=== PATIENT | female | born 1935 | race Caucasian/White ===

== ENCOUNTER 2022-08-11 00:53 | Outpatient (CLI) | payer MEDICARE, SELFPAY ==
--- NOTE | 2022-08-11 08:45 | DI.US_ITS ---
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 TECHNIQUE: Ultrasound thyroid performed using standard protocol. COMPARISON: US US THYROID from 12/21/2021 FINDINGS: Both thyroid lobes exhibit upper normal size. There are multiple small nodules in the left lobe. Al so multiple nodules in the right lobe. The dominant nodule in the right lobe is graded by TiRads RIGHT THYROID LOBE: Measures 2.4 cm AP x 2.1 cm wide x 5.13 cm craniocaudal Dominant nodule: Size: Measures 2.3 by 2.1 x 2 cm Composition: Solid-2 points Echogenicity: Hypoechoic-2 points Shape: Slightly taller than wider in the transverse plane-3 points Margin: Smooth- 0 points Echogenic Foci: Appears to contain punctate echogenic foci-3 points Total Points for this nodule: 10 ACR Ti-Rads Category: TR5 This TR5 nodule requires ultrasound-guided FNA. Nodule #2 more medially located in the right lobe Size: Measures 1.2 x 0.8 x 1.1 cm cm Composition: Solid-2 points Echogenicity: Isoechoic to surrounding gland-1 point Shape: Wider than taller- 0 points Margin: Smooth-0 points Echogenic Foci: Appears to contain punctate echogenic foci-3 points Total points for this nodule: 6 ACR Ti-Rads Category: TR4 This TR4 nodule can be followed as it measures less than 1.5 cm Other smaller nodules in the right lobe are not graded ISTHMUS: Normal thickness. There are no nodules significant in the isthmus. LEFT THYROID LOBE: Measures 1.7 cm AP x 1.8 wide x 5.0 cm craniocaudal There are multiple small nodules in the left lobe which can be followed and are not graded at this ti me. All are less than 1.5 cm LYMPH NODES: There is no significant adenopathy on either side of the neck. IMPRESSION: 1. Multiple bilateral nodules. Most significant nodule is the largest-dominant solid nodule in the r ight lobe which measures 2.3 x 2.1 x 2.1 cm and is a TR5 nodule which requires ultrasound-guided FNA as it measures greater than 1.5 cm 2. Other bilateral nodules can be followed conservatively 3. There is no significant lymphadenopathy. DATA REPOSITORY:
== END 2022-08-11 01:13 ==
PROVIDERS: PCP Family Medicine; Visit Provider Otolaryngology
DX: E04.2 Nontoxic multinodular goiter (principal)
CPT/HCPCS: 76536

== ENCOUNTER 2022-09-27 02:14 | Outpatient (CLI) | payer MEDICARE, SELFPAY ==
--- NOTE | 2022-09-27 08:30 | DI.US_ITS ---
Exam(s) US NEEDLE LOCAL OTHER WO RAD EXAM: US NEEDLE LOCAL OTHER WO RAD CLINICAL HISTORY: right thyroid TR5 nodule, E04.1. COMPARISON: US US THYROID from 08/11/2022 TECHNIQUE: Ultrasound was provided for guidance with performing thyroid FNA. FINDINGS: Previously noted nodules were targeted. Please see procedure note for details. IMPRESSION: Successful Ultrasound-guided thyroid FNA. DATA REPOSITORY:
--- NOTE | 2022-09-27 12:50 | PAPNONF_PTH ---
PATIENT: Dacia Ramon LOC: [facility]UM U#:[id number] AGE/SX: 86/F ROOM: RE09/27/[address]: Jenna Fields : 1935 BED: DIS: 09/27/2022 SPEC #: [id number] RECD: 09/27/22 13:17 STATUS: CARLOS A RESusan #: [id number] RUSTY: 09/27/22 12:[address]: Jenna Fields DEPT: [facility] Cytology RECD BY: Kiley Mcclendon ENTERED: 09/27/22 13:18 SP TYPE: KAYE HARDING DR: Andreina Hassan Tissues: 1 - BODY FLUID CYTO-FINE NEEDLE [facility]IRATE[facility] Procedures: BODY FLUID CYTO-FINE NEEDLE ASPIRATE[facility] Comments: [id number] (PATH FNA CONSULT) (REFRIGERATED)
--- NOTE | 2022-09-27 13:07 | W.PROCNOTE ---
Date of service: 09/27/22 Time of Service: 13:07 Procedure Note Date of procedure: 09/27/22 Procedure: Ultrasound-guided FNA, right thyroid nodule, TR five 2.3 cm nodule, Surgeon/Proceduralist/Physician: Octavio Caro Procedure Diagnosis: Right-sided TR five 2.3 cm nodule meeting criteria for biopsy Procedure Indications: The patient has a right-sided TR 5 thyroid nodule measuring 2.5 cm in diameter with a slight increase in size between her previous ultrasound and this 1. Options were explained to the patient regarding further management. She elected undergo the above procedure. Verbal consent was obtained. The below was then performed. Risks including bleeding, infection, failure to obtain an answer, and need for further treatment or surgery were discussed at length prior to the procedure. Procedure Description: The patient was positioned in supine position with her neck extended. Ultrasound was used to localize the thyroid nodule, and then the patient was prepped and draped in appropriate fashion. 1% lidocaine with 1/100,000 epinephrine was injected into the skin and subcutaneous tissues overlying the nodule, and then a 25-gauge needle passed into the thyroid nodule. Multiple passes were made. A total of 4 separate passes were made into the thyroid nodule, yielding a total of 4 clusters of cells and significant colloid with the air-dried prep performed by pathology. With each pass, a significant portion of the debris was placed into CytoLyt for further evaluation. After 4 passes, with the above results, options were explained to the patient. After discussion, we elected to do no further passes, save for 2 additional passes for potential Afirma. My suspicion is that we probably have enough cellularity in the CytoLyt, although I cannot be sure. The patient is aware of this. Sterile dressing was applied after ensuring adequate hemostasis, and the patient was allowed to sit and then stand. Her vital signs remained stable. She was able to ambulate afterwards without difficulty. She will remove the bandage in an hour and not replace it. She will call with any signs of infection. She will use ibuprofen or Tylenol or aspirin for discomfort. She had no further questions. She is comfortable with the plan. She will call me if she does not hear from me within 1 week with regard to pathology.
== END 2022-09-27 02:34 ==
LOC: DI 02:16
PROVIDERS: PCP Family Medicine; Visit Provider Registered Nurse Maternal Newborn
DX: E04.1 Nontoxic single thyroid nodule (principal)
CPT/HCPCS: 76942; 88104

== ENCOUNTER 2023-11-07 01:14 | Outpatient (CLI) | payer MEDICARE, SELFPAY ==
--- NOTE | 2023-11-07 07:30 | DI.US_ITS ---
Exam(s) US THYROID EXAM: US THYROID CLINICAL HISTORY: Assess for change,MULTINODULAR GOITER,E04.2. TECHNIQUE: Ultrasound thyroid performed using standard protocol. COMPARISON: US US THYROID from 08/11/2022 US US NEEDLE LOCAL OTHER WO RAD from 09/27/2022 FINDINGS: ISTHMUS: 4 mm RIGHT LOBE: Size: 5.2 x 2.2 x 2.5 cm Echogenicity: Heterogeneous Vascularity: Normal. Nodules: Multiple nodules. Nodule at the upper pole measures 1.3 x 1.2 x 1.1 cm, solid, isoechoic an d smoothly marginated. Slightly wider than tall. No echogenic foci. TR 3. Nodule in lower pole me asures 2.4 x 2.1 x 1.9 cm. Solid, hypoechoic, slightly taller than wide, smoothly marginated with ec hogenic foci. TR 5. This lesion was previously biopsied. No significant change in size. LEFT LOBE: Size: 4.4 x 1.9 x 1.7 cm Echogenicity: Heterogeneous Vascularity: Normal. Nodules: Multiple small nodules. The largest is at the upper pole measuring 1.5 x 0.8 x 1.3 cm. Julissa id, hypoechoic, wider than tall, smoothly marginated, without echogenic foci, TR 3. OTHER FINDINGS: None. IMPRESSION: Stable multiple bilateral thyroid nodules. DATA REPOSITORY:
== END 2023-11-07 01:34 ==
LOC: DI 01:14
PROVIDERS: PCP Family Medicine; Visit Provider Otolaryngology
DX: E04.2 Nontoxic multinodular goiter (principal)
CPT/HCPCS: 76536

== ENCOUNTER 2024-09-17 02:52 | Outpatient (RCR) | payer MEDICARE, SELFPAY ==
[2024-09-17 08:47] LABS: Abs Immature Grans 0.03 10^3/uL (0.0-0.06); HCT 35.5 % (36.0-46.0); HGB 11.3 g/dL (11.2-15.7); Immature Grans % 0.3 %; MCH 27.3 pg (27.0-33.0); MCHC 31.8 % (32.0-36.0); MCV 86 fL (80-95); MPV 9.3 fL (8.0-11.0); Platelet Count 307 10^3/uL (130-400); RBC 4.14 10^6/uL (3.93-5.22); RDW 17.2 % (11.7-14.6); RDW-SD 53.7 fL; WBC 10.97 10^3/uL (4.4-10.8)
[2024-09-17] MEDS: Normal Saline Flush 10 ML SYR IVP (08:50)
[2024-09-17 09:17] LABS: ALT 19 U/L (14-59); AST 13 U/L (15-37); Albumin 3.1 g/dL (3.4-5.0); Alkaline Phosphatase 84 U/L (46-116); Anion Gap 7.6 mmol/L (3-11); BUN 15 mg/dL (7-18); Bilirubin, Total 0.3 mg/dL (0.2-1.0); CO2 28.4 mmol/L (21.0-32.0); Calcium 9.4 mg/dL (8.5-10.1); Chloride 106 mmol/L (98-107); Estimated GFR 90.16 (mL/min/1.73m2); Glucose 121 mg/dL (74-106); Magnesium 1.8 mg/dL (1.8-2.4); Potassium 3.8 mmol/L (3.5-5.1); Sodium 142 mmol/L (136-145); TSH 2.43 uIU/mL (0.36-3.74); Total Protein 6.3 g/dL (6.4-8.2)
== END 2024-09-26 23:59 | disposition home or self-care (01) ==
LOC: INF 02:52
PROVIDERS: PCP Family Medicine; Visit Provider Internal Medicine Medical Oncology
DX: C34.31 Malignant neoplasm of lower lobe, right bronchus or lung (principal); Z79.899 Other long term (current) drug therapy; Z45.2 Encounter for adjustment and management of vascular access device
CPT/HCPCS: 36591; 80053; 83735; 84439; 84443; 85025

== ENCOUNTER 2024-10-21 03:24 | Outpatient (CLI) | payer MEDICARE, SELFPAY ==
--- NOTE | 2024-10-21 | DI.CT_ITS ---
Exam(s) CT CHEST/ABD/PEL W EXAM: CT CHEST/ABD/PEL W CLINICAL HISTORY: Metastatic non-small cell lung cancer, unspecified laterality, C34.90; TECHNIQUE: Imaging Protocol: Axial computed tomography images with coronal and sagittal reformatted images were created and reviewed. Lung Computer Aided Detection (CAD) was utilized. CONTRAST MATERIAL: Intravenous: Omnipaque 350 contrast volume:100 mL Oral: Yes COMPARISON: No exams were available for comparison FINDINGS: CHEST: Tracheobronchial tree: No evidence of bronchiectasis. Pulmonary parenchyma: There is a right perihilar mass measuring 5.9 transverse by 4.8 AP by 5.7 craniocaudad cm. There is narrowing of the airway to the superior segment of the right lower lobe. There are few pulmonary nodules present. The largest is in the right middle lobe and measures 1.1 cm (series 11, image 71). There is a small infiltrate seen in the right upper lobe. Visualized thyroid gland: There is a multinodular thyroid gland. The largest nodule is seen in the right lobe and measures 2.1 x 1.8 cm. Nonemergent thyroid ultrasound should be considered for further evaluation. Mediastinum and Emma: Mediastinal and right hilar adenopathy is present. The largest lymph node is seen in the right hilum measures 1.8 cm. The esophagus is unremarkable. Pleura: There is no pneumothorax. There is no left pleural effusion. There is a small pleural effusion or pleural thickening on the right. Heart: The heart is not dilated. No coronary artery calcifications are seen. No pericardial effusion. Pulmonary arteries: No pulmonary emboli are identified. There is compression/obstruction of pulmonary arteries seen to the right upper and right lower lobe secondary to the pulmonary neoplasm. Aorta: Thoracic aorta non-dilated. There is no evidence of dissection. Atherosclerotic calcification is present. Lymph nodes: There is no axillary adenopathy. Tubes, Catheters, and Lines: There is a right port in place. Soft tissues: Incidental note is made of a lipoma in the right axilla. There is a nonspecific 3 mm soft tissue nodule along the right lateral chest wall. Bones:Within normal limits for the patient's age. No suspicious lytic or sclerotic lesions are present. ABDOMEN: Liver: Normal density. There is a 1.3 cm simple cyst in the right lobe of the liver. There are no suspicious hepatic masses present. Portal, Superior Mesenteric, and Splenic Veins: Unremarkable. Gallbladder and Biliary Tract: No radiodense calculus or dilation. Pancreas: Normal density, no abnormal calcifications or inflammatory process. Spleen: Normal. Adrenals: No masses seen. Kidneys: Normal size, contour and axis. No radiodense stones or obstructive uropathy. There are no suspicious renal masses. Abdominal Aorta: Abdominal portion non-dilated. Atherosclerotic calcification is present. Bowel: No obstruction or bowel wall thickening. Appendix is unremarkable. There are a few scattered diverticula but no evidence of acute diverticulitis. There is no evidence of pneumatosis. Peritoneal Cavity: No ascites, collection or mesenteric inflammatory response. No free air. Lymph Nodes: Mildly enlarged lymph nodes are seen in the mesentery. Bones: Within normal limits for the patient's age. No suspicious lytic or sclerotic lesions are present. Soft Tissues: Unremarkable. PELVIS: Bladder: Symmetric distention, no gross wall thickening. Reproductive Organs: Unremarkable as visualized. Lymph Nodes: Within normal limits. Bones: Within normal limits. IMPRESSION: 1. No acute abdominal or pelvic process. 2. Nonspecific mildly enlarged lymph nodes seen in the mesentery. 3. 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 There is narrowing of associated vessel and airways. 4. Thoracic adenopathy and pulmonary metastases.. 5. Small right pleural effusion and/or pleural thickening. RADIATION DOSE DELIVERED: 511.16mGy.cm Total DLP DATA REPOSITORY: All CT scans at this facility are submitted to the National Radiology Data Registry (NRDR) Dose Index Registry (DIR) with the [employer] (ACR). RADIATION OPTIMIZATION: All CT scans at this facility use at least one of these dose optimization techniques: automated exposure control; mA and/or kV adjustment per patient size (includes targeted exams where dose is matched to clinical indication); or iterative reconstruction.
[2024-10-21] MEDS: Barium Sulfate 2% W/V-Berry Smoothie 450 ML BTL PO ×2 (07:42→07:43)
[2024-10-21] MEDS: Normal Saline - Diluent 50 ML VIAL IJ (09:47)
[2024-10-21] MEDS: Omnipaque 350 MG/ML 500 ML BTL-Imaging package IJ (09:47)
[2024-10-21] MEDS: Normal Saline Flush 10 ML SYR IVP (09:48)
== END 2024-10-21 03:44 ==
LOC: DI 03:24
PROVIDERS: PCP Family Medicine; Visit Provider Nurse Practitioner Family
DX: C34.91 Malignant neoplasm of unspecified part of right bronchus or lung (principal)
CPT/HCPCS: 74177; 96523; 71260

== ENCOUNTER 2024-10-21 03:32 | Outpatient (RCR) | payer MEDICARE, SELFPAY ==
[2024-10-07 09:11] LABS: Abs Immature Grans 0.04 10^3/uL (0.0-0.06); HCT 31.2 % (36.0-46.0); HGB 9.9 g/dL (11.2-15.7); Immature Grans % 0.5 %; MCH 27.0 pg (27.0-33.0); MCHC 31.7 % (32.0-36.0); MCV 85 fL (80-95); MPV 9.0 fL (8.0-11.0); Platelet Count 346 10^3/uL (130-400); RBC 3.67 10^6/uL (3.93-5.22); RDW 18.1 % (11.7-14.6); RDW-SD 55.3 fL; WBC 8.04 10^3/uL (4.4-10.8)
[2024-10-07] MEDS: Normal Saline Flush 10 ML SYR IVP (09:34)
[2024-10-07 09:38] LABS: ALT 22 U/L (14-59); AST 15 U/L (15-37); Albumin 2.7 g/dL (3.4-5.0); Alkaline Phosphatase 102 U/L (46-116); Anion Gap 7.2 mmol/L (3-11); BUN 15 mg/dL (7-18); Bilirubin, Total 0.3 mg/dL (0.2-1.0); CO2 28.8 mmol/L (21.0-32.0); Calcium 9.2 mg/dL (8.5-10.1); Chloride 103 mmol/L (98-107); Estimated GFR 70.39 (mL/min/1.73m2); Glucose 113 mg/dL (74-106); Magnesium 1.8 mg/dL (1.8-2.4); Potassium 4.0 mmol/L (3.5-5.1); Sodium 139 mmol/L (136-145); TSH 0.38 uIU/mL (0.36-3.74); Total Protein 6.1 g/dL (6.4-8.2)
[2024-10-21] MEDS: Normal Saline Flush 10 ML SYR IVP (07:43)
== END 2024-10-27 23:59 | disposition home or self-care (01) ==
LOC: INF 03:32
PROVIDERS: PCP Family Medicine; Visit Provider Internal Medicine Medical Oncology
DX: C34.31 Malignant neoplasm of lower lobe, right bronchus or lung (principal); Z79.899 Other long term (current) drug therapy; Z45.2 Encounter for adjustment and management of vascular access device
CPT/HCPCS: 36591; 80053; 96523; 83735; 84439; 84443; 85025

== ENCOUNTER 2024-11-05 11:34 | Outpatient (CLI) | payer MEDICARE, SELFPAY ==
--- NOTE | 2024-11-05 06:45 | DI.US_ITS ---
Exam(s) US THYROID EXAM: US THYROID CLINICAL HISTORY: Assess for change,multinodular goiter,e04.2. TECHNIQUE: Ultrasound thyroid performed using standard protocol. COMPARISON: US US THYROID from 12/21/2021 US US NEEDLE LOCAL OTHER WO RAD from 09/27/2022 US US THYROID from 11/07/[address] CHEST/ABD/PEL W from 10/21/2024 FINDINGS: There are again noted multiple bilateral thyroid nodules with a dominant nodule again noted to be in the right lobe and this apparently underwent prior ultrasound-guided FNA on 09/27/2022. With respect to the multiple bilateral nodules, this appears similar to previous and do not meet criteria for biopsy. However, with respect to the dominant solid nodule in the right lobe, it presently measures 2.4 x 2 x 2.2 cm, similar to previous Specifics of this solid right lobe nodule are as follows: Composition: Solid-2 points Echogenicity: Hypoechoic-2 points Shape: Taller than wider in the transverse plane-3 points Margin: Lobulated-2 points Echogenic foci: Contains punctate echogenic foci-3 points Therefore total points for this nodule = 12 points, making this a highly suspicious TR 5 level nodule which warrants biopsy. No significant lymphadenopathy evident IMPRESSION: 1. The previously described (and apparently previously biopsied) dominant solid nodule in the right thyroid lobe exhibits minimal if any significant growth when compared to prior ultrasound examination of October 2023. However, it is a highly suspicious TR 5 level nodule and qualifies for ultrasound-guided FNA to rule out malignancy. 2. No significant lymphadenopathy evident. DATA REPOSITORY:
== END 2024-11-05 11:54 ==
PROVIDERS: PCP Family Medicine; Visit Provider Otolaryngology
DX: E04.2 Nontoxic multinodular goiter (principal)
CPT/HCPCS: 76536

== ENCOUNTER 2024-11-19 10:00 | Outpatient (RCR) | payer MEDICARE, SELFPAY ==
[2024-10-29] MEDS: Normal Saline Flush 10 ML SYR IVP (07:50)
[2024-10-29 08:47] LABS: Abs Immature Grans 0.03 10^3/uL (0.0-0.06); HCT 32.3 % (36.0-46.0); HGB 10.3 g/dL (11.2-15.7); Immature Grans % 0.4 %; MCH 28.4 pg (27.0-33.0); MCHC 31.9 % (32.0-36.0); MCV 89 fL (80-95); MPV 9.8 fL (8.0-11.0); Platelet Count 275 10^3/uL (130-400); RBC 3.63 10^6/uL (3.93-5.22); RDW 21.0 % (11.7-14.6); RDW-SD 67.9 fL; WBC 6.67 10^3/uL (4.4-10.8)
[2024-10-29 09:27] LABS: ALT 29 U/L (14-59); AST 22 U/L (15-37); Albumin 3.0 g/dL (3.4-5.0); Alkaline Phosphatase 100 U/L (46-116); Anion Gap 6.4 mmol/L (3-11); BUN 18 mg/dL (7-18); Bilirubin, Total 0.3 mg/dL (0.2-1.0); CO2 28.6 mmol/L (21.0-32.0); Calcium 9.5 mg/dL (8.5-10.1); Chloride 107 mmol/L (98-107); Glucose 102 mg/dL (74-106); Magnesium 1.7 mg/dL (1.8-2.4); Potassium 3.9 mmol/L (3.5-5.1); Sodium 142 mmol/L (136-145); TSH 0.09 uIU/mL (0.36-3.74); Total Protein 6.0 g/dL (6.4-8.2)
[2024-10-29 10:08] LABS: Anisocytosis 2+; Microcytosis 1+
[2024-11-19] MEDS: Normal Saline Flush 10 ML SYR IVP (10:08)
[2024-11-19 10:16] LABS: Abs Immature Grans 0.04 10^3/uL (0.0-0.06); HCT 32.3 % (36.0-46.0); HGB 10.4 g/dL (11.2-15.7); Immature Grans % 0.5 %; MCH 28.8 pg (27.0-33.0); MCHC 32.2 % (32.0-36.0); MCV 90 fL (80-95); MPV 9.4 fL (8.0-11.0); Platelet Count 311 10^3/uL (130-400); RBC 3.61 10^6/uL (3.93-5.22); RDW 23.1 % (11.7-14.6); RDW-SD 75.5 fL; WBC 8.26 10^3/uL (4.4-10.8)
[2024-11-19 10:23] LABS: Anisocytosis 2+
[2024-11-19 11:21] LABS: ALT 28 U/L (14-59); AST 21 U/L (15-37); Albumin 3.4 g/dL (3.4-5.0); Alkaline Phosphatase 96 U/L (46-116); Anion Gap 7.6 mmol/L (3-11); BUN 14 mg/dL (7-18); Bilirubin, Total 0.4 mg/dL (0.2-1.0); CO2 28.4 mmol/L (21.0-32.0); Calcium 9.4 mg/dL (8.5-10.1); Chloride 105 mmol/L (98-107); Glucose 98 mg/dL (74-106); Magnesium 1.7 mg/dL (1.8-2.4); Potassium 3.9 mmol/L (3.5-5.1); Sodium 141 mmol/L (136-145); TSH 18.46 uIU/mL (0.36-3.74); Total Protein 6.4 g/dL (6.4-8.2)
== END 2024-11-26 23:59 | disposition home or self-care (01) ==
LOC: INF 10:00
PROVIDERS: PCP Family Medicine; Visit Provider Internal Medicine Medical Oncology
DX: C34.31 Malignant neoplasm of lower lobe, right bronchus or lung (principal); Z79.899 Other long term (current) drug therapy; Z45.2 Encounter for adjustment and management of vascular access device
CPT/HCPCS: 36591; 80053; 83735; 84439; 84443; 85025

== ENCOUNTER 2024-12-09 03:16 | Outpatient (RCR) | payer MEDICARE, SELFPAY ==
[2024-12-09 12:15] LABS: Abs Immature Grans 0.04 10^3/uL (0.0-0.06); HCT 33.0 % (36.0-46.0); HGB 10.7 g/dL (11.2-15.7); Immature Grans % 0.4 %; MCH 29.7 pg (27.0-33.0); MCHC 32.4 % (32.0-36.0); MCV 92 fL (80-95); MPV 9.5 fL (8.0-11.0); Platelet Count 264 10^3/uL (130-400); RBC 3.60 10^6/uL (3.93-5.22); RDW 22.8 % (11.7-14.6); RDW-SD 78.1 fL; WBC 8.97 10^3/uL (4.4-10.8)
[2024-12-09] MEDS: Normal Saline Flush 10 ML SYR IVP (12:27)
[2024-12-09 12:31] LABS: Anisocytosis 1+
[2024-12-09 12:43] LABS: ALT 28 U/L (14-59); AST 22 U/L (15-37); Albumin 3.6 g/dL (3.4-5.0); Alkaline Phosphatase 113 U/L (46-116); Anion Gap 8.7 mmol/L (3-11); BUN 16 mg/dL (7-18); Bilirubin, Total 0.4 mg/dL (0.2-1.0); CO2 27.3 mmol/L (21.0-32.0); Calcium 9.2 mg/dL (8.5-10.1); Chloride 104 mmol/L (98-107); Glucose 99 mg/dL (74-106); Magnesium 1.6 mg/dL (1.8-2.4); Potassium 3.8 mmol/L (3.5-5.1); Sodium 140 mmol/L (136-145); TSH 5.03 uIU/mL (0.36-3.74); Total Protein 6.5 g/dL (6.4-8.2)
== END 2024-12-27 23:59 | disposition home or self-care (01) ==
LOC: INF 03:16
PROVIDERS: PCP Family Medicine; Visit Provider Internal Medicine Medical Oncology
DX: C34.31 Malignant neoplasm of lower lobe, right bronchus or lung (principal); Z79.899 Other long term (current) drug therapy; Z45.2 Encounter for adjustment and management of vascular access device
CPT/HCPCS: 36591; 80053; 83735; 84439; 84443; 85025

== ENCOUNTER 2024-12-30 03:30 | Outpatient (RCR) | payer MEDICARE, SELFPAY ==
[2024-12-30] MEDS: Normal Saline Flush 10 ML SYR IVP (10:20)
[2024-12-30 10:37] LABS: Abs Immature Grans 0.01 10^3/uL (0.0-0.06); HCT 33.6 % (36.0-46.0); HGB 11.1 g/dL (11.2-15.7); Immature Grans % 0.2 %; MCH 31.0 pg (27.0-33.0); MCHC 33.0 % (32.0-36.0); MCV 94 fL (80-95); MPV 10.0 fL (8.0-11.0); Platelet Count 282 10^3/uL (130-400); RBC 3.58 10^6/uL (3.93-5.22); RDW 19.9 % (11.7-14.6); RDW-SD 68.6 fL; WBC 5.79 10^3/uL (4.4-10.8)
[2024-12-30 11:24] LABS: ALT 30 U/L (14-59); AST 24 U/L (15-37); Albumin 3.2 g/dL (3.4-5.0); Alkaline Phosphatase 101 U/L (46-116); Anion Gap 10.7 mmol/L (3-11); BUN 17 mg/dL (7-18); Bilirubin, Total 0.5 mg/dL (0.2-1.0); CO2 26.3 mmol/L (21.0-32.0); Calcium 8.8 mg/dL (8.5-10.1); Chloride 106 mmol/L (98-107); Estimated GFR 82.62 (mL/min/1.73m2); Glucose 117 mg/dL (74-106); Magnesium 1.6 mg/dL (1.8-2.4); Potassium 3.8 mmol/L (3.5-5.1); Sodium 143 mmol/L (136-145); TSH 5.24 uIU/mL (0.36-3.74); Total Protein 6.4 g/dL (6.4-8.2)
== END 2025-01-26 23:59 | disposition home or self-care (01) ==
LOC: INF 03:30
PROVIDERS: PCP Family Medicine; Visit Provider Internal Medicine Medical Oncology
DX: C34.31 Malignant neoplasm of lower lobe, right bronchus or lung (principal); Z79.899 Other long term (current) drug therapy; Z45.2 Encounter for adjustment and management of vascular access device
CPT/HCPCS: 36591; 80053; 83735; 84439; 84443; 85025